=== PATIENT | female | born 1985 | race Caucasian/White ===

== ENCOUNTER 2018-07-23 08:08 | Emergency (ER) | payer BC ==
--- NOTE | 2018-07-23 08:50 | UC ---
Ear Complaint HPI - HPI Summary HPI Summary: 32-year-old woman with a chief complaint of right ear pain. 5 days ago the patient started with sore throat and right ear pain. She was down 1 ounce she went to an urgent care she got prescribed Flonase and a Z-Esequiel. She's also had a headache that she's been taking Excedrin Migraine for which does help some with the headache. It's not helping much with the ear. She has not been swimming is been no known trauma. Sore throat is improved. No recent fevers. No cough or chest congestion. - History of Current Complaint Chief Complaint: UCEar Stated Complaint: SORE THROAT EAR PAIN Time Seen by Provider: 07/23/18 08:36 Hx Last Menstrual Period: Pain Intensity: 7 - Allergies/Home Medications Allergies/Adverse Reactions: Allergies Allergy/AdvReac Type Severity Reaction Status Date / Time amoxicillin Allergy Intermediate Hives Verified 07/23/18 08:24 cephalexin [From Keflex] Allergy Intermediate Hives Verified 07/23/18 08:25 ciprofloxacin [From Cipro] Allergy Intermediate Numbness Verified 07/23/18 08:25 sulfamethoxazole Allergy Intermediate Blisters Verified 07/23/18 08:25 [From Bactrim] trimethoprim [From Bactrim] Allergy Intermediate Blisters Verified 07/23/18 08: 25 Home Medications: Home Medications Ethinyl Estradiol/Drospirenone [Liyah 28 3-0.03 mg] 1 tab PO DAILY 07/23/18 [ History Confirmed 07/23/18] PMH/Surg Hx/FS Hx/Imm Hx Previously Healthy: Yes - Surgical History Surgical History: None Surgery Procedure, Year, and Place: deneis - Family History Known Family History: Positive: Non-Contributory - Social History Alcohol Use: Occasionally Substance Use Type: None Smoking Status (MU): Never Smoked Tobacco Review of Systems All Other Systems Reviewed And Are Negative: Yes Constitutional: Positive: Negative Skin: Positive: Negative Eyes: Positive: Negative ENT: Positive: Sore Throat, Ear Ache, Nasal Discharge, Sinus Congestion Respiratory: Positive: Negative Cardiovascular: Positive: Negative Gastrointestinal: Positive: Negative Motor: Positive: Negative Neurovascular: Positive: Negative Musculoskeletal: Positive: Negative Neurological: Positive: Negative Psychological: Positive: Negative Is Patient Immunocompromised?: No Physical Exam Triage Information Reviewed: Yes Appearance: Well-Appearing, No Pain Distress, Well-Nourished Vital Signs: Initial Vital Signs Temp 98.2 F 07/23/18 08:19 Pulse 89 07/23/18 08:19 Resp 18 07/23/18 08:19 BP 117/79 07/23/18 08:19 Pulse Ox 100 07/23/18 08:19 Vital Signs Reviewed: Yes Eye Exam: Normal Eyes: Positive: Conjunctiva Clear ENT: Positive: Pharynx normal, TM bulging - RT, TM red - RT Neck exam: Normal Neck: Positive: Supple Respiratory: Positive: Lungs clear, Normal breath sounds, No respiratory distress Cardiovascular: Positive: RRR Musculoskeletal Exam: Normal Musculoskeletal: Positive: Strength Intact, ROM Intact Neurological Exam: Normal Neurological: Positive: Alert, Muscle Tone Normal Psychological Exam: Normal Psychological: Positive: Age Appropriate Behavior Skin Exam: Normal Ear Complaint Course/Dx - Course Course Of Treatment: DISCUSSED VIRAL VERSES BACTERIAL INFECTION AND THE ROLE OF ANTIBIOTICS. THE PATIENT PREFERS TO BE ON ANTIBIOTICS AT THIS TIME. - Differential Dx/Diagnosis Provider Diagnosis: Right serous otitis media Discharge - Sign-Out/Discharge Documenting (check all that apply): Patient Departure All imaging exams completed and their final reports reviewed: No Studies - Discharge Plan Condition: Stable Disposition: HOME Prescriptions: DOXYcycline CAP(*) [DOXYcycline 100MG CAP(*)] 100 mg PO BID #20 cap Patient Education Materials: Serous Otitis Media (ED) Ref[place]: [facility] [Outside] Additional Instructions: FOLLOW UP WITH YOUR DOCTOR IF NOT COMPLETELY IMPROVED. GET REEVALUATED SOONER IF YOUR CONDITION WORSENS OR ANY QUESTIONS OR CONCERNS. - Billing Disposition and Condition Condition: STABLE Disposition: Home
== END 2018-07-23 09:02 | disposition home or self-care (01) ==
LOC: UCEAST 08:08
DX: H65.91 Unspecified nonsuppurative otitis media, right ear (principal); J02.9 Acute pharyngitis, unspecified; Z88.1 Allergy status to other antibiotic agents; Z88.0 Allergy status to penicillin; Z88.2 Allergy status to sulfonamides
CPT/HCPCS: 99202; G0463